=== PATIENT | female | born 1990 | race Caucasian/White ===

== ENCOUNTER 2021-11-23 20:11 | Inpatient (IN) | payer OTHER ==
[~2021-11-23] VITALS: Ht 154.9 cm; Wt 59.1 kg
[~2021-11-23 20:11] MED LIST: BACTRIM DS TAB1 EACH PO
[2021-11-23 21:27] LABS: HEMOGLOBIN 13.1 gm/dl (12.3-15.3); RED BLOOD COUNT 4.22 M/UL (4.00-5.10); WHITE BLOOD COUNT 15.3 K/UL (4.5-11.0)
[2021-11-23 21:52] LABS: BUN/CREATININE RATIO 18 (0-10)
[2021-11-24] MEDS ORDERED: PREDNISONE20 MG PO (03:36)
[2021-11-24] MEDS ORDERED: HYDROXYZINE HCL25 MG PO (03:36)
[2021-11-24] MEDS ORDERED: PROVENTIL HFA6.7 GM INH (03:37)
[2021-11-24] MEDS ORDERED: VITAMIN D21250 MCG PO (03:37)
[2021-11-24] MEDS ORDERED: CLOBETASOL 0.0560 G1 TP (03:38)
[2021-11-25 09:19] LABS: BUN/CREATININE RATIO 12 (0-10)
[2021-11-25 09:44] LABS: HEMOGLOBIN 12.4 gm/dl (12.3-15.3)
[2021-11-25 09:50] LABS: WHITE BLOOD COUNT 8.9 K/UL (4.5-11.0)
[2021-11-25] MEDS ORDERED: HYDROCODON-ACE1 EAC2 PO (15:13)
[2021-11-26 03:45] LABS: HEMOGLOBIN 11.8 gm/dl (12.3-15.3); RED BLOOD COUNT 3.84 M/UL (4.00-5.10)
[2021-11-26 03:52] LABS: WHITE BLOOD COUNT 11.7 K/UL (4.5-11.0)
[2021-11-27 09:45] LABS: HEMOGLOBIN 12.5 gm/dl (12.3-15.3); RED BLOOD COUNT 4.03 M/UL (4.00-5.10); WHITE BLOOD COUNT 11.3 K/UL (4.5-11.0)
--- NOTE | 2021-11-27 15:25 | NUR ---
18G X 10CM MIDLINE PLACED IN THE RIGHT BASILIC VEIN, UTILIZING US GUIDANCE. PT WAS VERY NERVOUS ABOUT GETTING THE MIDLINE. NO COMPLICATIONS. ASPIRATES AND FLUSHES EASILY. TRANSPARENT DRESSING PLACED OVER SITE AND DATED.
[2021-11-27] MEDS ORDERED: CEPHALEXIN500 MG PO (16:20)
[2021-11-27] MEDS ORDERED: LEVOFLOXAC750 MG/150 IV (16:20)
[2021-11-27] MEDS ORDERED: ENDOCET 5-3251 EACH PO (17:19)
--- NOTE | 2021-11-27 18:19 | NUR ---
NURSE TRIED TO CALL [facility] TO GIVE REPORT AND [facility] SAYS THEY DO NOT HAVE HER PATIENT.
== END 2021-11-27 18:08 | disposition home or self-care (01) | DRG 982 ==
LOC: ER1 20:11 → CDU 23:09 → M/S 23:09
PROVIDERS: Family Medicine; Internal Medicine; Physician Assistant; ADMIT Internal Medicine
PROC: 3E03329 Introduction of Other Anti-infective into Peripheral Vein, Percutaneous Approach (ICD-10-PCS; principal; 2021-11-23)
PROC: 0LB80ZZ Excision of Left Hand Tendon, Open Approach (ICD-10-PCS; 2021-11-25)
DX: L02.512 Cutaneous abscess of left hand (principal); L03.115 Cellulitis of right lower limb; J45.909 Unspecified asthma, uncomplicated; F17.210 Nicotine dependence, cigarettes, uncomplicated; D64.9 Anemia, unspecified; Z20.822 Contact with and (suspected) exposure to COVID-19; B95.61 Methicillin susceptible Staphylococcus aureus infection as the cause of diseases classified elsewhere; Z98.51 Tubal ligation status; Z88.2 Allergy status to sulfonamides; Z88.1 Allergy status to other antibiotic agents; Z91.040 Latex allergy status; Z83.6 Family history of other diseases of the respiratory system
CPT/HCPCS: 36415; 73130; 80048; 80053; 80202; 81001; 83605; 83735; 84703; 85025; 85652; 86140; 87040; 87070; 87077; 87086; 87186; 87205; 94760; 96365; 96366; 96367; 96374; 96375; 96376; 99284; C1751; G0378; J1100; J1885; J1956; J2001; J2250; J2270; J2405; J2543; J2704; J3010; J3370; J7030; J7070; J7120; U0002

== ENCOUNTER → 2021-12-10 | Outpatient (CLI) | payer OTHER ==
[~2021-12-10] MED LIST changes: +CEPHALEXIN500 MG PO; +CLOBETASOL 0.0560 G1 TP; +ENDOCET 5-3251 EACH PO; +HYDROCODON-ACE1 EAC2 PO; +HYDROXYZINE HCL25 MG PO; +LEVOFLOXAC750 MG/150 IV; +PREDNISONE20 MG PO; +PROVENTIL HFA6.7 GM INH; +VITAMIN D21250 MCG PO
[2021-12-10 14:47] LABS: HEMOGLOBIN 11.4 gm/dl (12.3-15.3); RED BLOOD COUNT 3.76 M/UL (4.00-5.10); WHITE BLOOD COUNT 8.4 K/UL (4.5-11.0)
[2021-12-10 14:50] LABS: BUN/CREATININE RATIO 10 (0-10)
== END ==
LOC: OPSV 14:08
PROVIDERS: Internal Medicine Infectious Disease
DX: L02.512 Cutaneous abscess of left hand (principal); B95.61 Methicillin susceptible Staphylococcus aureus infection as the cause of diseases classified elsewhere; J45.909 Unspecified asthma, uncomplicated; F17.210 Nicotine dependence, cigarettes, uncomplicated
CPT/HCPCS: 36415; 80048; 85025; 86140